=== PATIENT | female | born 1985 | race Caucasian/White ===

== ENCOUNTER 2017-09-24 14:28 | Observation (INO) ==
[2017-09-24 16:12] LABS: Bilirubin,Urine Negative (Negative); Blood,Urine Trace-intact (Negative); Clarity,Urine Slightly Cloudy (Clear); Color,Urine Yellow (Yellow); Glucose,Urine (UA) Normal (Normal); Ketones,Urine Negative (Negative); Leukocyte Esterase,Urine Negative (Negative); Nitrite,Urine Negative (Negative); PH,Urine 5.5 pH Units (5.0-8.0); Protein,Urine 30 mg/dL (Neg-Trace); Specific Gravity,Urine >= 1.030 (1.010-1.025); Urobilinogen,Urine Normal (Normal)
[2017-09-24 16:18] LABS: Bacteria,Urine Few per hpf (None-Few); Calcium Oxalate Crystals,Urine Present; RBC,Urine 0-3 per hpf (0-3); Squamous Epithelial Cell,Urine Few per lpf (None-Few); WBC,Urine 0-3 per hpf (0-3)
[2017-09-24 16:29] LABS: Basophils % 0.2 %; Eosinophils % 0.1 %; Hematocrit 35.1 % (35.3-44.9); Hemoglobin 11.4 g/dL (11.5-15.4); Immature Granulocytes % 0.3 % (0-4); Lymphocytes # 1.1 K/mcL (0.6-4.6); Lymphocytes % 8.6 %; Mean Corpuscular HGB Conc 32.5 g/dL (31.6-35.5); Mean Corpuscular Hemoglobin 26.8 pg (28.0-33.3); Mean Corpuscular Volume 82.6 fL (83.0-100.0); Mean Platelet Volume 10.5 fL (9.4-12.4); Monocytes # 0.4 K/mcL (0.0-1.3); Monocytes % 2.9 %; Neutrophils # 11.2 K/mcL (1.6-8.9); Platelet Count 342 K/mcL (140-400); Red Blood Count 4.25 M/mcL (3.82-4.97); Red Cell Distribution Width 13.4 % (11.5-14.5); Segmented Neutrophils % 87.9 %
[2017-09-24 16:42] LABS: Alanine Aminotransferase 10 Units/L (0-55); Albumin 3.8 g/dL (3.5-5.0); Alkaline Phosphatase 65 Units/L (38-126); Aspartate Amino Transferase 14 Units/L (5-34); BUN/Creatinine Ratio 9 (6-26); Bilirubin,Direct 0.2 mg/dL (0.0-0.5); Bilirubin,Indirect 0.2 mg/dL (0.0-1.2); Bilirubin,Total 0.4 mg/dL (0.2-1.2); Blood Urea Nitrogen 11 mg/dL (7-20); Calcium 9.5 mg/dL (8.6-10.8); Carbon Dioxide 24 mEq/L (19-29); Chloride 108 mEq/L (98-109); Glucose 114 mg/dL (70-99); Lipase 28 Units/L (8-78); Osmolality,Calculated 290 (280-300); Potassium 3.8 mEq/L (3.5-4.5); Sodium 140 mEq/L (136-145); Total Protein 7.8 g/dL (6.0-8.3); eGFR For African Americans > 60 (> 60); eGFR For Non-African Americans 52 (> 60)
[2017-09-24] MEDS ORDERED: Ondansetron ODT 4 MG TAB.RAPDIS SL ONE (19:44)
[2017-09-24] MEDS ORDERED: *HR* HYDROmorphone (PF) 1 MG/ML SYRINGE IM ONE (19:44)
[2017-09-24] MEDS ORDERED: *HR* HYDROmorphone (PF) 1 MG/ML SYRINGE IVP ONE (19:47)
[2017-09-24] MEDS ORDERED: 0.9 % Sodium Chloride 1,000 ML IVC ONE (19:47)
[2017-09-24] MEDS ORDERED: Ondansetron 4 MG/2 ML VIAL IVP ONE (19:47)
--- NOTE | 2017-09-24 19:47 | Emergency Department Note ---
Disposition Clinical Impression: Ureterolithiasis, Acute kidney injury Disposition: Admitted As Inpatient Condition: Good Referrals: Neelima Coleman, CHIEF TECHNICIAN [Primary Care Provider] - Forms: ED Satisfaction Letter, Work/School Release Time of Disposition: 20:47 Abdominal Pain HPI - General Chief Complaint: ED Abdominal Pain Stated Complaint: kidney stone Time Seen by Provider: 09/24/17 16:28 Source: patient Mode of arrival: ambulatory Limitations: no limitations Nursing Notes Reviewed: Yes Vital Signs Reviewed: Yes - History of Present Illness HPI Narrative: 32-year-old who comes in complaining of left flank pain. Patient states she has a history of kidney stone that she had during her she delivered 2 months ago thought had gone away but now she has severe left flank pain. States she's not able to put out much urine. 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 Denies: fever, chills Treatments prior to arrival: none - Related Data Home Medications Medication Instructions Recorded Confirmed Vitamins 06/30/17 Allergies Allergy/AdvReac Type Severity Reaction Status Date / Time decongestants Allergy Rash Uncoded 09/24/17 14:53 All systems ED: reviewed and negative except as stated. Constitutional: Denies: fever, chills, weakness, weight change Eyes: Denies: eye pain, eye discharge, vision change ENT ED: Denies: ear pain, throat pain, dental pain, hearing loss, epistaxis, congestion, dysphagia Cardiovascular: Denies: chest pain, palpitations, dyspnea on exertion, edema, syncope Respiratory: Denies: cough, dyspnea, wheezes, hemoptysis, stridor Gastrointestinal: Reports: abdominal pain. Denies: nausea, vomiting, diarrhea, constipation, hematemesis, melena, hematochezia Genitourinary: Denies: dysuria, frequency, hematuria, discharge Musculoskeletal: Reports: back pain. Denies: neck pain, arthralgia, myalgia Integumentary: Denies: rash, abrasion, lesions Neurological: Denies: headache, weakness, numbness, paresthesias, confusion, abnormal gait, vertigo Psychiatric: Denies: anxiety, depression, suicidal thoughts, homicidal thoughts , auditory hallucinations, visual hallucinations Endocrine: Denies: fatigue Hematological/Lymphatic: Denies: easy bleeding, easy bruising Allergic/Immunologic: Denies: facial swelling, urticaria Abdominal Pain PMH - Past Medical History Medical history: Reports: kidney stones Female Surgical History: Reports: no surgical history CLINICAL INFORMATICS EDUCATOR history: Reports: no CLINICAL INFORMATICS EDUCATOR history : 4 Para: 4 A: 0 Psychiatric history: Reports: no psych history - Social History Smoking status: Never smoker Alcohol use: Reports: none Drug use: Reports: none Physical Exam - General Limitations: no limitations General appearance: alert, in no apparent distress - Head Head exam: atraumatic, normocephalic, normal inspection - Eye Eye exam: Present: normal appearance, PERRL, EOMI - ENT ENT exam: normal exam, normal oropharynx, mucous membranes moist - Neck Neck exam: Present: normal inspection, full ROM, trachea midline - Chest Chest inspection: Present: normal inspection, symmetric chest wall rise - Respiratory Respiratory exam: Present: normal lung sounds bilaterally - Cardiovascular Cardiovascular exam: Present: regular rate, normal rhythm, normal heart sounds - Abdominal Exam Abdominal exam: Present: soft, Non-Tender. Absent: tenderness, distention, guarding, rebound, rigidity - Extremities Exam Extremities exam: Present: normal inspection, full ROM. Absent: tenderness, pedal edema - Expanded Lower Extremity Exam Neurovascular/Tendon exam: Absent: motor deficit, sensory deficit, tendon deficit Gait: observed and normal - Back Exam Back exam: Present: normal inspection, full ROM. Absent: tenderness - Neurological Exam Neurological exam: Present: alert, oriented X3 - Psychiatric Psychiatric exam: Present: normal affect, normal mood - Skin Skin exam: Present: warm, dry, intact, normal color Course - Reevaluation(s) Reevaluation #1: 32-year-old comes in with severe left flank pain. Patient had a kidney stone diagnosed when she was 2 months ago has not really much problems with it until today when she developed severe pain. CT scan does show an 8 mm distal left ureteral stone with severe [place]. She does have some renal insufficiency. We will admit to obtain urology consult. Time: 20:46 - Consultations Consultation #1: Discussed with Dr. Ochoa, admit to the hospitalist he will see in consult. Time: 20:45 Consultation #2: Discussed with , it. Time: 20:46 Vital Signs Temperature 97.7 F 12/18/17 14:49 Pulse Rate 56 09/24/17 14:49 Respiratory Rate 16 09/24/17 14:49 Blood Pressure 131/64 09/24/17 14:49 O2 Sat by Pulse Oximetry 98 09/24/17 14:49 Temperature 98.6 F 09/24/17 19:40 Pulse Rate 56 09/24/17 14:49 Respiratory Rate 18 09/24/17 19:40 Blood Pressure 159/94 09/24/17 19:40 O2 Sat by Pulse Oximetry 98 09/24/17 14:49 Oxygen Delivery Oxygen Delivery Room Air Abdominal Pain - Lab Data Lab results reviewed: Yes I reviewed the patient's lab results. Result diagrams: 09/24/17 16:09 09/24/17 16:09 Lab Results 09/24/17 09/24/17 09/24/17 Range/Units 15:41 15:41 16:09 WBC 12.8 H (4.3-11.1) K/mcL RBC 4.25 (3.82-4.97) M/mcL Hgb 11.4 L (11.5-15.4) g/dL Hct 35.1 L (35.3-44.9) % MCV 82.6 L (83.0-100.0) fL MCH 26.8 L (28.0-33.3) pg MCHC 32.5 (31.6-35.5) g/dL RDW 13.4 (11.5-14.5) % Plt Count 342 (140-400) K/mcL MPV 10.5 (9.4-12.4) fL Immature Gran % 0.3 (0-4) % Seg Neutrophils % 87.9 % Lymphocytes % 8.6 % Monocytes % 2.9 % Eosinophils % 0.1 % Basophils % 0.2 % Neutrophils # 11.2 H (1.6-8.9) K/mcL Lymphocytes # 1.1 (0.6-4.6) K/mcL Monocytes # 0.4 (0.0-1.3) K/mcL Eosinophils # 0.0 (0.0-0.6) K/mcL Basophils # 0.0 (0.0-0.2) K/mcL Sodium (136-145) mEq/L Potassium (3.5-4.5) mEq/L Chloride (98-109) mEq/L Carbon Dioxide (19-29) mEq/L BUN (7-20) mg/dL Creatinine (0.57-1.11) mg/dL Est GFR ( Amer) (> 60) Est GFR (Non-Af Amer) (> 60) BUN/Creatinine Ratio (6-26) Glucose (70-99) mg/dL Calculated Osmolality (280-300) Calcium (8.6-10.8) mg/dL Total Bilirubin (0.2-1.2) mg/dL Direct Bilirubin (0.0-0.5) mg/dL Indirect Bilirubin (0.0-1.2) mg/dL AST (5-34) Units/L ALT (0-55) Units/L Alkaline Phosphatase (38-126) Units/L Serum Total Protein (6.0-8.3) g/dL Albumin (3.5-5.0) g/dL Globulin (2.4-3.5) g/dL Albumin/Globulin Ratio (1.1-2.2) Lipase (8-78) Units/L Urine Color Yellow (Yellow) Urine Clarity Slightly Cloudy A (Clear) Urine pH 5.5 (5.0-8.0) pH Units Ur Specific [place] >= 1.030 H (1.010-1.025) Urine Protein 30 H (Neg-Trace) mg/dL Urine Glucose (UA) Normal (Normal) mg/dL Urine Ketones Negative (Negative) mg/dL Urine Blood Trace-intact H (Negative) Urine Nitrite Negative (Negative) Urine Bilirubin Negative (Negative) Urine Urobilinogen Normal (Normal) mg/dL Ur Leukocyte Esterase Negative (Negative) Urine Microscopic RBC 0-3 (0-3) per hpf Urine Microscopic WBC 0-3 (0-3) per hpf Ur Squamous Epith Cells Few (None-Few) per lpf Calcium Oxalate Crystal Present Urine Bacteria Few (None-Few) per hpf Ur Culture Indicated? NO (NO) Urine Test Negative (Negative) 09/24/17 Range/Units 16:09 WBC (4.3-11.1) K/mcL RBC (3.82-4.97) M/mcL Hgb (11.5-15.4) g/dL Hct (35.3-44.9) % MCV (83.0-100.0) fL MCH (28.0-33.3) pg MCHC (31.6-35.5) g/dL RDW (11.5-14.5) % Plt Count (140-400) K/mcL MPV (9.4-12.4) fL Immature Gran % (0-4) % Seg Neutrophils % % Lymphocytes % % Monocytes % % Eosinophils % % Basophils % % Neutrophils # (1.6-8.9) K/mcL Lymphocytes # (0.6-4.6) K/mcL Monocytes # (0.0-1.3) K/mcL Eosinophils # (0.0-0.6) K/mcL Basophils # (0.0-0.2) K/mcL Sodium 140 (136-145) mEq/L Potassium 3.8 (3.5-4.5) mEq/L Chloride 108 (98-109) mEq/L Carbon Dioxide 24 (19-29) mEq/L BUN 11 (7-20) mg/dL Creatinine 1.20 H (0.57-1.11) mg/dL Est GFR ( Amer) > 60 (> 60) Est GFR (Non-Af Amer) 52 L (> 60) BUN/Creatinine Ratio 9 (6-26) Glucose 114 H (70-99) mg/dL Calculated Osmolality 290 (280-300) Calcium 9.5 (8.6-10.8) mg/dL Total Bilirubin 0.4 (0.2-1.2) mg/dL Direct Bilirubin 0.2 (0.0-0.5) mg/dL Indirect Bilirubin 0.2 (0.0-1.2) mg/dL AST 14 (5-34) Units/L ALT 10 (0-55) Units/L Alkaline Phosphatase 65 (38-126) Units/L Serum Total Protein 7.8 (6.0-8.3) g/dL Albumin 3.8 (3.5-5.0) g/dL Globulin 4.0 H (2.4-3.5) g/dL Albumin/Globulin Ratio 1.0 L (1.1-2.2) Lipase 28 (8-78) Units/L Urine Color (Yellow) Urine Clarity (Clear) Urine pH (5.0-8.0) pH Units Ur Specific [place] (1.010-1.025) Urine Protein (Neg-Trace) mg/dL Urine Glucose (UA) (Normal) mg/dL Urine Ketones (Negative) mg/dL Urine Blood (Negative) Urine Nitrite (Negative) Urine Bilirubin (Negative) Urine Urobilinogen (Normal) mg/dL Ur Leukocyte Esterase (Negative) Urine Microscopic RBC (0-3) per hpf Urine Microscopic WBC (0-3) per hpf Ur Squamous Epith Cells (None-Few) per lpf Calcium Oxalate Crystal Urine Bacteria (None-Few) per hpf Ur Culture Indicated? (NO) Urine Test (Negative) - Radiology Data Radiology results reviewed: Yes I reviewed the patient's radiology results. Abdomen/Pelvis CT 09/24/17 19:44 IMPRESSION: Severe left hydroureteronephrosis proximal to an 8 mm calculus in the distal left ureter. D/ / Lito Hernández / Lito Hernández Interpreting Provider: Lito Hernández
[2017-09-24] MEDS ORDERED: Ondansetron 4 MG/2 ML VIAL IVP PRN (21:09)
[2017-09-24] MEDS ORDERED: Acetaminophen 325 MG TABLET PO PRN (21:09)
[2017-09-24] MEDS ORDERED: *HR* HYDROcodone/Acet 5/325 mg TABLET PO PRN (21:09)
[2017-09-24] MEDS ORDERED: *HR* HYDROmorphone (PF) 1 MG/ML SYRINGE IVP PRN (21:09)
[2017-09-24] MEDS ORDERED: *HR* Promethazine 25 MG/ML VIAL IVP PRN (21:09)
[2017-09-24] MEDS ORDERED: Naloxone 0.4 MG/ML INJ IVP PRN (21:09)
--- NOTE | 2017-09-24 21:36 | Internal Med History&Physical ---
<ShamaraylatriceVasquez ríos - Last Filed: 09/24/17 21:56> Date of Encounter: 09/24/17 Time of Encounter: 21:00 Assessment and Plan (1) Ureterolithiasis Current visit: Yes Status: Acute CT of the abdomen/pelvis w/o contrast today shows severe left hydroureteronephrosis proximal to an 8 mm calculus in the distal ureter. Pt. reports previous kidney stone in July. Pt. also reports nausea w/vomiting x3 today. States pain today is worse than pain in July. Leukocytosis currently w /WBC of 12.8 on admission. U/A not indicative for UTI. IVPB ceftriaxone 1,000 mg daily for infection coverage. Stair-step pain medication for pain mgmt. IVP Zofran 4 mg Q6 PRN for N/V. Urology consult ordered in ED. NPO at midnight for procedure tomorrow. Pt. is at moderate risk for further morbidity based on current sx, recurrence of renal calculi, leukocytosis, and hx. Observation. (2) Acute kidney injury Current visit: Yes Status: Acute Acute kidney injury r/t current severe left hydroureteronephrosis proximal to an 8 mm calculus distal left ureter. Current creatinine 1.20 and GFR 52. Pt. reports she is not making much urine even though she is taking in fluids. IV 0.9 NS @ 125 mL/HR ordered. Monitor I&O, f/u labs, and avoid nephrotoxins. (3) IBS (irritable bowel syndrome) Current visit: Yes Status: Chronic Hx of chronic IBS. Pt. states she does not currently take any medications for IBS but experiences flare-ups. Counseled to see her PCP for interventional f/u. Monitor I&O. Qualifiers: Irritable bowel syndrome type: with both diarrhea and constipation Qualified Code(s): K58.2 - Mixed irritable bowel syndrome (4) GERD (gastroesophageal reflux disease) Current visit: Yes Status: Chronic Hx of chronic GERD sx. Pt. reports she has not taken medications for GERD in some time d/t not seeing a PCP for awhile. IVP Protonix 40 mg daily. Qualifiers: Esophagitis presence: esophagitis presence not specified Qualified Code(s) : K21.9 - Gastro-esophageal reflux disease without esophagitis (5) DVT prophylaxis Current visit: Yes Status: Acute Bilateral SCDs on LEs for DVT prophylaxis d/t possible surgical intervention tomorrow for ureteral stone removal. Internal Medicine - H&P: HPI Chief complaint: Left flank pain Admitted From: Emergency Dept Plans for Post Hospital Care: Home History of present illness: Ms. Celestin is a 32 year old female with medical hx of kidney stones and IBS presents from the ED with chief complaint of left flank pain the patient had approximately 10 AM this morning. Patient states last time this occurred was in July when she had previous kidney stone. Patient reports pain today was worse than she experienced in July. She will also reports she is not producing much urine and that she has been nauseous and vomiting 3 today. Patient states pain medication administered in ED helped reduce her pain. Patient denies recent illness, fever, chills, chest pain, palpitations, shortness of breath, dyspnea, changes in vision, unusual bleeding, dizziness, lightheadedness, pre-syncope, or syncope. Past Med Surg Social Fam HX - Past Medical History Source: patient, old records reviewed Medical history: kidney stones Psychiatric history: no psych history - Social History Smoking Status: Never smoker Smokeless Tobacco Status: No Alcohol use: none Drug use: none Current living situation: Home, With Family Activity Level: Independent ambulation, Very active Recent Out of Country Travel Within the Last 8 Weeks: No Exposure or Possible Exposure to Illness During Travel: No - Family History Father Race: Family Member Ethnicity: Non- Living Status: Still Living Hx Family Cardiac Disorders: Yes ([place]) Hx Family Genitourinary Disorders: Yes (Kidney stones) Mother Race: Family Member Ethnicity: Non- Living Status: Still Living Hx Family Cardiac Disorders: Yes (HTN) Hx Family Genitourinary Disorders: Yes (Kidney stones) Brother Race: Family Member Ethnicity: Non- Living Status: Still Living Hx Family Medical Disorders: No Internal Medicine - H&P: Meds Norethindrone AC-Eth Estradiol [Junel 1.5 mg-30 Mcg Tablet] 1 each PO DAILY [History] 3 Allergy/AdvReac Type Severity Reaction Status Date / Time decongestants Allergy Rash Uncoded 09/24/17 14:53 All Systems PM: A 10-system review of systems was performed and is negative for pertinent findings except as documented above in the HPI. - Constitutional Constitutional: no chills, no fever(s), no night sweats - EENT Eyes: no change in vision, no discharge, no pain, no photophobia Ears: no ear discharge, no ear pain, no tinnitus Nose, mouth and throat: no dysphagia, no nasal discharge, no neck pain, no sore throat - Breasts Breasts: as per HPI - Cardiovascular Cardiovascular ROS IM: no chest pain, no diaphoresis, no dyspnea, no lightheadedness, no palpitations, no syncope - Respiratory Respiratory: no cough, no dyspnea, no wheezing, no excessive phlegm production - Gastrointestinal Gastrointestinal: as per HPI, abdominal pain, nausea, vomiting, other (IBS) - Genitourinary Genitourinary: as per HPI, flank pain (Left) Menstruation: as per HPI - Musculoskeletal Musculoskeletal ROS IM: no numbness, no tingling - Integumentary Integumentary IM: no rash, no unusual bruising - Neurological Neurological ROS: no confusion, no convulsions, no focal weakness, no numbness, no tingling, no tremor(s) - Psychiatric Psychiatric: as per HPI - Endocrine Endocrine IM: as per HPI - Hematologic/Lymphatic Hematologic/Lymphatic: no easy bruising - Allergic/Immunologic Allergic/Immunologic: as per HPI - Constitutional Vitals: Temp Pulse Resp BP Pulse Ox 98.6 F 68 16 135/88 98 09/24/17 19:40 09/24/17 21:18 09/24/17 21:18 09/24/17 21:18 09/24/17 14:49 General appearance: Present: cooperative, A&O X 3, pleasant, no acute distress, answers questions appropriately - Head Head exam: Present: atraumatic, normal inspection, normocephalic - Eye Eye exam: Present: PERRL, conjuntiva pink, sclera anicteric Pupils: Present: PERRL - ENT ENT exam: Present: normal exam, normal external ear exam - Neck Neck exam general surgery: Present: normal inspection, supple, trachea midline. Absent: lymphadenopathy - Respiratory Respiratory exam: Present: CTAB. Absent: accessory muscle use, rales, rhonchi, wheezes - Cardiovascular Cardiovascular exam: Present: RRR, +S1, +S2. Absent: diastolic murmur, gallop, rubs, systolic murmur - GI/Abdominal GI/Abdominal exam: Present: normal bowel sounds, soft, tenderness, no peritoneal signs. Absent: distended - Rectal Rectal exam: Present: deferred - Additional comments: exam deferred. - Extremities Exam Extremities exam: Present: warm, radial pulses palpable and symmetrical. Absent : calf tenderness, cyanotic, pedal edema - Back Exam Back exam: Present: normal inspection - Neurological Exam Neurological exam: Present: CN II-XII intact, oriented X3, no focal deficits. Absent: pronater drift, facial droop, speech deficit - Psychiatric Psychiatric exam: Present: normal affect, normal mood - Skin Skin exam: Present: dry, intact Internal Med - H&P Results - Labs CBC & Chem 7: 09/24/17 16:09 09/24/17 16:09 Labs: Short CBC 09/24/17 Range/Units 16:09 WBC 12.8 H (4.3-11.1) K/mcL Hgb 11.4 L (11.5-15.4) g/dL Hct 35.1 L (35.3-44.9) % Plt Count 342 (140-400) K/mcL Neutrophils # 11.2 H (1.6-8.9) K/mcL BMP 09/24/17 16:09 Sodium 140 Potassium 3.8 Chloride 108 Carbon Dioxide 24 BUN 11 Creatinine 1.20 H Glucose 114 H Calcium 9.5 Liver Function 09/24/17 Range/Units 16:09 Total Bilirubin 0.4 (0.2-1.2) mg/dL Direct Bilirubin 0.2 (0.0-0.5) mg/dL AST 14 (5-34) Units/L ALT 10 (0-55) Units/L Alkaline Phosphatase 65 (38-126) Units/L Albumin 3.8 (3.5-5.0) g/dL Urine 09/24/17 Range/Units 15:41 Urine Color Yellow (Yellow) Urine Clarity Slightly Cloudy A (Clear) Urine pH 5.5 (5.0-8.0) pH Units Ur Specific [place] >= 1.030 H (1.010-1.025) Urine Protein 30 H (Neg-Trace) mg/dL Urine Glucose (UA) Normal (Normal) mg/dL - Impressions ITS Impressions Abdomen/Pelvis CT 09/24/17 19:44 IMPRESSION: Severe left hydroureteronephrosis proximal to an 8 mm calculus in the distal left ureter. D/ / Lito Hernández / Lito Hernández Interpreting Provider: Lito Hernández - Diagnostic Studies CT scan - abdomen Additional comments: Impressions Abdomen/Pelvis CT 09/24/17 19:44 IMPRESSION: Severe left hydroureteronephrosis proximal to an 8 mm calculus in the distal left ureter. D/ / Lito Hernández / Lito Hernández Interpreting Provider: Lito Hernández <Melissa Morales - Last Filed: 09/25/17 03:33> Date of Encounter: 09/24/17 Internal Medicine - H&P: HPI History of present illness: Ms. Celestin is a 32 year old female All Systems PM: A 10-system review of systems was performed and is negative for pertinent findings except as documented above in the HPI. - Constitutional Vitals: Temp Pulse Resp BP Pulse Ox 97.4 F L 62 14 126/84 97 09/25/17 00:05 09/25/17 00:05 09/25/17 00:05 09/25/17 00:05 09/25/17 00:05 Internal Med - H&P Results - Labs CBC & Chem 7: 09/24/17 16:09 09/24/17 16:09 - Attending Attestation I have personally performed a face to face evaluation on this patient. I have reviewed and agree with the care plan provided by COLTEN Watson. History and Exam by me shows: Ms. Celestin is a 32 year old female with medical hx of kidney stones and IBS presents from the ED with chief complaint of left flank pain and nausea/ vomiting. She also stated oliguria. Her CT of Abd showed Left hydronephrosis and Left ureter calculi. Gen: A, A, O x 3 Chest : CTAB ABd: Soft, Mild tender LLQ a/p 1. Acute Left renal calculi 2. Acute kidney injury 3. Acute obstructive uropathy Will place her into Med Surg for observation IV analgesics prophylactic abx NPO after mid night Urology already consulted in the ER
[2017-09-24] MEDS ORDERED: Pantoprazole 40 MG VIAL IVP SCH (22:00)
[2017-09-24] MEDS ORDERED: cefTRIAXone 1,000 MG in Water for inj. (sterile) 10 ML IVPB SCH (22:00)
[2017-09-25] MEDS: 0.9 % Sodium Chloride 1,000 ML IVC SCH ×2 (00:21→08:00)
[2017-09-25 05:34] LABS: Basophils % 0.3 %; Eosinophils % 0.1 %; Hematocrit 34.4 % (35.3-44.9); Hemoglobin 11.2 g/dL (11.5-15.4); Immature Granulocytes % 0.3 % (0-4); Lymphocytes % 17.2 %; Mean Corpuscular HGB Conc 32.6 g/dL (31.6-35.5); Mean Corpuscular Hemoglobin 26.8 pg (28.0-33.3); Mean Corpuscular Volume 82.3 fL (83.0-100.0); Mean Platelet Volume 10.3 fL (9.4-12.4); Monocytes # 0.9 K/mcL (0.0-1.3); Monocytes % 8.1 %; Neutrophils # 8.6 K/mcL (1.6-8.9); Platelet Count 302 K/mcL (140-400); Red Blood Count 4.18 M/mcL (3.82-4.97); Red Cell Distribution Width 13.4 % (11.5-14.5)
[2017-09-25 05:40] LABS: Hemoglobin A1C 4.6 %
[2017-09-25 05:45] LABS: BUN/Creatinine Ratio 9 (6-26); Blood Urea Nitrogen 10 mg/dL (7-20); Calcium 8.4 mg/dL (8.6-10.8); Carbon Dioxide 21 mEq/L (19-29); Chloride 109 mEq/L (98-109); Glucose 98 mg/dL (70-99); Osmolality,Calculated 281 (280-300); Potassium 3.9 mEq/L (3.5-4.5); Sodium 136 mEq/L (136-145); eGFR For African Americans > 60 (> 60); eGFR For Non-African Americans 59 (> 60)
--- NOTE | 2017-09-25 07:34 | Urology - Consult Note ---
Date of Encounter: 09/25/17 Time of Encounter: 07:32 - Assessment and Plan (1) Ureterolithiasis Current Visit: Yes Status: Acute Assessment and plan: 32 year old woman with a left distal ureteral stone. She has been admitted for pain control. She wishes to have her stone treated today. We will schedule her for a left ureteroscopy, laser lithotripsy, and stent placement. She was informed of the risks of the surgery which include but are not limited to bleeding, infection, injury to other structures, need for further procedures, incomplete treatment, stent discomfort, risks otherwise unforeseen, and the risk of anesthesia. She is willing to proceed. Urology CN:HPI Consult date: 09/25/17 Reason for consult Urology: Other (left ureteral stone) History of present illness: 32 year old woman presents with concern for left flank pain. The pain started yesterday and was severe. She reports that it was located in the left lower quadrant. The pain worsened over time. It was sharp. She came to the ER and had a CT which showed a distal left ureteral stone at 7.8mm. She is still having some pain today. Past Med Surg Social Fam HX - Past Medical History Medical history: GERD, kidney stones Psychiatric history: no psych history - Social History Smoking Status: Never smoker Smokeless Tobacco Status: No Alcohol use: none Drug use: none - Family History Father Race: Family Member Ethnicity: Non- Living Status: Still Living Hx Family Cardiac Disorders: Yes (MA) Hx Family Genitourinary Disorders: Yes (Kidney stones) Mother Race: Family Member Ethnicity: Non- Living Status: Still Living Hx Family Cardiac Disorders: Yes (HTN) Hx Family Genitourinary Disorders: Yes (Kidney stones) Brother Name: Michael Kaufman Age: 39 Race: Family Member Ethnicity: Non- Living Status: Still Living Hx Family Genitourinary Disorders: Yes (Kidney stones) Hx Family Medical Disorders: No Medications and Allergies Norethindrone AC-Eth Estradiol [Junel 1.5 mg-30 Mcg Tablet] 1 each PO DAILY [History] 3 Allergy/AdvReac Type Severity Reaction Status Date / Time decongestants Allergy Rash Uncoded 09/24/17 14:53 Review of Systems - Constitutional no chills, no fever(s) - EENT Nose, mouth and throat: no dizziness - Cardiovascular no chest pain - Respiratory no dyspnea - Gastrointestinal no nausea, no vomiting - Genitourinary Genitourinary: flank pain, no hematuria - Musculoskeletal no back pain - Integumentary no erythema, no rash - Neurological no weakness - Psychiatric no suicidal ideation - Hematologic/Lymphatic no easy bleeding - Allergic/Immunologic no wheezing Exam Initial Vital Signs Temp Pulse Resp BP Pulse Ox 97.7 F 56 16 131/64 98 09/24/17 14:49 09/24/17 14:49 09/24/17 14:49 09/24/17 14:49 09/24/17 14:49 - General physical appearance Present: well developed, well nourished, no distress - Eyes Absent: icteric - ENT Present: normal nares - Neck Present: trachea midline - Respiratory Present: normal respiratory effort - Cardiovascular Cardiovascular exam IM: RRR - Abdomen Abdomen: Present: soft Urology Results - Labs 09/25/17 05:25 09/25/17 05:25 Abnormal lab results WBC 11.6 K/mcL (4.3-11.1) H 09/25/17 05:25 Hgb 11.2 g/dL (11.5-15.4) L 09/25/17 05:25 Hct 34.4 % (35.3-44.9) L 09/25/17 05:25 MCV 82.3 fL (83.0-100.0) L 09/25/17 05:25 MCH 26.8 pg (28.0-33.3) L 09/25/17 05:25 Est GFR (Non-Af Amer) 59 (> 60) L 09/25/17 05:25 POC Glucose 94 (58-89) H 09/25/17 05:19 Calcium 8.4 mg/dL (8.6-10.8) L 09/25/17 05:25 Globulin 4.0 g/dL (2.4-3.5) H 09/24/17 16:09 Albumin/Globulin Ratio 1.0 (1.1-2.2) L 09/24/17 16:09 Urine Clarity Slightly Cloudy (Clear) A 09/24/17 15:41 Ur Specific [place] >= 1.030 (1.010-1.025) H 09/24/17 15:41 Urine Protein 30 mg/dL (Neg-Trace) H 09/24/17 15:41 Urine Blood Trace-intact (Negative) H 09/24/17 15:41 Diabetes panel 09/25/17 09/25/17 Range/Units 05:25 05:25 Sodium 136 (136-145) mEq/L Potassium 3.9 (3.5-4.5) mEq/L Chloride 109 (98-109) mEq/L Carbon Dioxide 21 (19-29) mEq/L BUN 10 (7-20) mg/dL Creatinine 1.09 (0.57-1.11) mg/dL Glucose 98 (70-99) mg/dL Hemoglobin A1c 4.6 ( - 5.6) % Calcium 8.4 L (8.6-10.8) mg/dL Calcium panel 09/25/17 Range/Units 05:25 Calcium 8.4 L (8.6-10.8) mg/dL Pituitary panel 09/25/17 Range/Units 05:25 Sodium 136 (136-145) mEq/L Potassium 3.9 (3.5-4.5) mEq/L Chloride 109 (98-109) mEq/L Carbon Dioxide 21 (19-29) mEq/L BUN 10 (7-20) mg/dL Creatinine 1.09 (0.57-1.11) mg/dL Glucose 98 (70-99) mg/dL Calcium 8.4 L (8.6-10.8) mg/dL Adrenal panel 09/25/17 Range/Units 05:25 Sodium 136 (136-145) mEq/L Potassium 3.9 (3.5-4.5) mEq/L Chloride 109 (98-109) mEq/L Carbon Dioxide 21 (19-29) mEq/L BUN 10 (7-20) mg/dL Creatinine 1.09 (0.57-1.11) mg/dL Glucose 98 (70-99) mg/dL Calcium 8.4 L (8.6-10.8) mg/dL All other labs normal. - Imaging CT scan - abdomen: report reviewed, image reviewed CT scan - pelvis: report reviewed, image reviewed Consult Discharge Plan - Plan Referrals: Neelima Coleman CNP [Primary Care Provider] - Jonathan Ochoa MD [Partnered Physician] -
--- NOTE | 2017-09-25 10:05 | Internal Med Progress Note ---
Date of Encounter: 09/25/17 Time of Encounter: 10:00 - Assessment and plan (1) Ureterolithiasis Current Visit: Yes Status: Acute Assessment and plan: Continue with pain control. Urology is seeing. Plans for cystoscopy with laser lithotripsy later. Continue with IV fluids. She is on empiric antibiotics with ceftriaxone. Follow-up on urine culture. (2) Acute kidney injury Current Visit: Yes Status: Acute Assessment and plan: Improving with IV fluids. Avoid nephrotoxins. Check labs in the morning. (3) DVT prophylaxis Current Visit: Yes Status: Acute Assessment and plan: Heparin subcutaneous. - Subjective Interval history: Patient was seen and examined. She was admitted for left hydronephrosis with a left sided calculus. She was seen by urology with plans for OR later today. She really wants to leave post procedure to make it to her son's birthday libertarian. Pain is well controlled. She is nothing by mouth. She has been afebrile. - Constitutional Vitals: Temp Pulse Resp BP Pulse Ox 98.6 F 67 14 126/84 97 09/25/17 06:47 09/25/17 06:47 09/25/17 06:47 09/25/17 06:47 09/25/17 06:47 General appearance: Present: cooperative, A&O X 3, pleasant, no acute distress, answers questions appropriately Exam: GEN: NAD CVS: RRR. S1, S2, No m/r/g RESP: CTAB ABD: Soft, NT, ND, +BS EXT: Left flank tenderness. No edema. 2+ DP, No rashes NEURO: Nonfocal Internal Medicine: Result - Labs CBC & Chem 7: 09/25/17 05:25 09/25/17 05:25 Labs: Short CBC 09/25/17 Range/Units 05:25 WBC 11.6 H (4.3-11.1) K/mcL Hgb 11.2 L (11.5-15.4) g/dL Hct 34.4 L (35.3-44.9) % Plt Count 302 (140-400) K/mcL Neutrophils # 8.6 (1.6-8.9) K/mcL BMP 09/25/17 05:25 Sodium 136 Potassium 3.9 Chloride 109 Carbon Dioxide 21 BUN 10 Creatinine 1.09 Glucose 98 Calcium 8.4 L Consult Discharge Plan - Plan Referrals: Neelima Coleman CNP [Primary Care Provider] - Jonathan Ochoa MD [Partnered Physician] -
--- NOTE | 2017-09-25 10:25 | Discharge Summary ---
<Adolfo Monroy - Last Filed: 09/25/17 14:19> Date of Encounter: 09/25/17 Time of Encounter: 10:20 - Discharge Diagnosis (1) Ureterolithiasis Priority: Primary Status: Acute (2) Acute kidney injury Priority: Primary Status: Acute - Discharge Medications Prescriptions: HYDROcodone/Acet 5/325 mg [[place] 5-325 mg] 1 tab PO Q6HR PRN #15 tablet PRN Reason: Moderate Pain (4-6) levoFLOXacin [Levaquin] 500 mg PO DAILY #6 tablet Home Medications: Norethindrone AC-Eth Estradiol [Junel 1.5 mg-30 Mcg Tablet] 1 each PO DAILY [History] HYDROcodone/Acet 5/325 mg [[place] 5-325 mg] 1 tab PO Q6HR PRN #15 tablet [Rx] levoFLOXacin [Levaquin] 500 mg PO DAILY #6 tablet 09/25/17 [Rx] Allergies/Adverse Reactions: 3 Allergy/AdvReac Type Severity Reaction Status Date / Time decongestants Allergy Rash Uncoded 09/24/17 14:53 Date of admission: 09/24/17 22:44 Primary care physician: Neelima Coleman CNP - Patient Status Disposition: Home, Self-Care Overall status at discharge: patient is back to baseline - Discharge Instructions Follow Up With: Jonathan Ochoa MD [Partnered Physician] - (Neelima from urology will call with surgical follow up date and time. Thank you) Additional Instructions: 1. The patient can remove the stent in 3 days by pulling on the string. 2. She should expect to feel flank pain with voiding. 3. The patient should call for any fevers, chills, nausea, emesis, or uncontrolled pain. 4. Please provide a work excuse if necessary for up to 1 week off. 5. The urology clinic will arrange for follow-up in 2-4 weeks. - Diet and Activity Activity: resume usual activities as tolerated Diet: regular diet Hospital course: Ms. Celestin is a 32 year old female with medical hx of kidney stones and IBS presented with chief complaint of left flank pain that started suddenly. CT of the abdomen/pelvis w/o contrast showed severe left hydroureteronephrosis proximal to an 8 mm calculus in the distal ureter. She was seen by urology and underwent cystoscopy with lithrotripsy and stent placement. She will need to follow up with them. - Time Spent with Patient Total time spent providing and/or coordinating discharge services: - Constitutional Vitals: Temp Pulse Resp BP Pulse Ox 98.6 F 67 14 126/84 97 09/25/17 06:47 09/25/17 06:47 09/25/17 06:47 09/25/17 06:47 09/25/17 06:47 General appearance: Present: cooperative, A&O X 3, pleasant, no acute distress, answers questions appropriately Exam: GEN: NAD CVS: RRR. S1, S2, No m/r/g RESP: CTAB ABD: Soft, NT, ND, +BS EXT: No edema. 2+ DP. No rashes NEURO: Nonfocal <Jonathan Ochoa - Last Filed: 09/25/17 16:59> Date of Encounter: 09/25/17 - Discharge Diagnosis (1) Ureterolithiasis Status: Acute Date of admission: 09/24/17 22:44 Primary care physician: Neelima Coleman CNP Hospital course: Ms. Celestin is a 32 year old female - Time Spent with Patient Total time spent providing and/or coordinating discharge services: - Constitutional Vitals: Temp Pulse Resp BP Pulse Ox 98.5 F 58 14 120/78 99 09/25/17 10:32 09/25/17 10:32 09/25/17 10:32 09/25/17 10:32 09/25/17 10:32
[2017-09-25] MEDS ORDERED: *HR* Heparin 5,000 UNIT/ML VIAL SQ SCH ×2 (14:00→22:00)
[2017-09-25] MEDS ORDERED: *HR* Propofol 200 MG/20 ML VIAL IVP ONE (15:50)
[2017-09-25] MEDS ORDERED: Ondansetron 4 MG/2 ML VIAL ONE (15:50)
[2017-09-25] MEDS ORDERED: Ketorolac 30 MG/ML VIAL ONE (15:50)
[2017-09-25] MEDS ORDERED: Lidocaine -MPF 2% 2 ML VIAL ONE (15:50)
[2017-09-25] MEDS ORDERED: *HR* FentaNYL (PF) 100 MCG/2 ML VIAL ONE (15:50)
[2017-09-25] MEDS ORDERED: *HR* Midazolam HCl 2 MG/2 ML VIAL ONE (15:50)
--- NOTE | 2017-09-25 15:53 | Anesthesia Evaluation PreOp ---
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 Any Significant HX Other Medical History: Renal (stones) Anesthesia History: Past Anesthesia (denies PSH) : No Test: Negative Alcohol Use: none Drug use: none Medications and Allergies Norethindrone AC-Eth Estradiol [Junel 1.5 mg-30 Mcg Tablet] 1 each PO DAILY [History] HYDROcodone/Acet 5/325 mg [[place] 5-325 mg] 1 tab PO Q6HR PRN #15 tablet [Rx] levoFLOXacin [Levaquin] 500 mg PO DAILY #6 tablet 09/25/17 [Rx] 3 Allergy/AdvReac Type Severity Reaction Status Date / Time decongestants Allergy Rash Uncoded 09/24/17 14:53 - Meds/Allergy Pre-op Review Medications Reviewed: Yes Allergies Reviewed: Yes Beta Blockers on Current Med List: No Anesthesia Results - Labs 09/25/17 05:25 09/25/17 05:25 Anesthesia Exam Selected Entries 09/25/17 10:32 Temperature 98.5 F Pulse Rate 58 Respiratory Rate 14 Blood Pressure 120/78 O2 Sat by Pulse Oximetry 99 Weight: 87kg NPO (# of Hours): 8 - HEENT Pupil (Motor): EOMI Mallampati: II Teeth: Normal Oral Opening: Greater than 3 - 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
[2017-09-25] MEDS ORDERED: ceFAZolin 2,000 MG in Water for inj. (sterile) 20 ML IVP ONE (16:00)
[2017-09-25] MEDS ORDERED: *HR* Promethazine 25 MG/ML VIAL IVP PRN ×2 (16:33→18:32)
[2017-09-25] MEDS ORDERED: *HR* HYDROmorphone (PF) 1 MG/ML SYRINGE IVP PRN ×2 (16:33→18:32)
--- NOTE | 2017-09-25 16:56 | Operative Note ---
Date of procedure: 09/25/17 Pre-op diagnosis: Left ureteral stone Post-op diagnosis: same Procedure: Left ureteroscopy, laser lithotripsy, basket stone extraction, left ureteral stent placement. Implants: 6 [place] x 26cm JJ stent. Complications: none. Anesthesia: NANCIEA Surgeon: Jonathan Ochoa Estimated blood loss (cc): 1 Specimen: left ureteral stone Condition: stable Disposition: PACU Procedure in Detail: Indications: Chloe is a 32-year-old woman who has a history of left flank pain. A CT scan showed a 7 mm distal left ureteral stone. She has tried to pass the stone on her own but has not been able to do so. She is still having flank pain. She wishes to have the stone removed. Therefore, she elected undergo a left ureteroscopy, laser lithotripsy, basket stone extraction, and left ureteral stent placement. She is aware of the risks of the procedure including but not limited to bleeding, infection, injury to other structures, need for further procedures, need for stent, stent irritation, need for nephrostomy tube, incomplete treatment, need for open repair, risks unforeseen, and the risk of anesthesia. She is on proceed. Procedure: After informed consent was obtained the patient was brought back to the operating room and placed in supine position. A time out was performed. General anesthesia was administered and an LMA was placed. She was then placed in the lithotomy position. She was prepped and draped in the usual sterile fashion. Cystoscopy was performed. The anterior urethra was normal. There was no evidence of bladder tumors. The ureteral orifices were in the normal orthotopic position. The zip wire was placed in the left ureteral orifice and brought into the kidney under fluoroscopic guidance. I then advanced the semirigid ureteroscope into the ureter. The stone was fragmented into small pieces using the 365 micron laser fiber. The stone fragments were basket extracted. A 6 [place] by 26cm JJ stent was then placed with good curl seen in the kidney and the bladder. The dangle string was left intact. The string was tucked into the vagina and will be used to remove the stent at a later date. The patient was then awakened from general anesthesia and brought to recovery room in good condition. All sponge, needle, and instrument counts were correct.
--- NOTE | 2017-09-25 17:23 | Anesthesia Evaluation Post Op ---
Date of Encounter: 09/25/17 Time of Encounter: 17:22 - Vital Signs Vital Signs: Selected Entries 09/25/17 17:04 09/25/17 17:14 Temperature 97.7 F Pulse Rate 52 Respiratory Rate 16 Blood Pressure 119/86 O2 Sat by Pulse Oximetry 100 - Lungs Lungs: Clear Ascult./Percussion - Airway Airway: Non-obstructed - Cardiovascular Regular Rate - Mental Status Mental Status: Alert & Oriented, Answers Appropriately - Pain Pain Scale: 1 Pain Scale used: Numeric (1 - 10) - Nausea Vomiting Nausea Vomiting: Not Present - Hydration Hydration: Ice chips, Has not voided - Discharge PostOp Status: Transfer Patient to floor
[2017-09-25 18:31] VITALS: BP 120/73
[2017-09-25] MEDS ORDERED: Ondansetron 4 MG/2 ML VIAL IVP PRN (18:32)
[2017-09-25] MEDS ORDERED: *HR* HYDROcodone/Acet 5/325 mg TABLET PO PRN (18:32)
[2017-09-25] MEDS ORDERED: Naloxone 0.4 MG/ML INJ IVP PRN (18:32)
[2017-09-25] MEDS ORDERED: Acetaminophen 325 MG TABLET PO PRN (18:32)
== END 2017-09-25 18:57 | disposition home or self-care (01) ==
LOC: EMEROO 14:28 → 3ANU 14:28
PROVIDERS: ADMIT Family Medicine; ATTEND Internal Medicine